=== PATIENT | female | born 1960 | race Caucasian/White ===

== ENCOUNTER 2021-06-18 06:51 | Day surgery (SDC) | payer MEDICAID ==
[2021-06-16 11:45] LABS: COVID AG,FIA SOURCE NASOPHARYNGEAL
[~2021-06-18] VITALS: Ht 167.6 cm; Wt 85.0 kg
[~2021-06-18 06:51] MED LIST: ASPI-1444 PO; FLUT1BLS13 IH; GLIP10TA9 PO; LISI-658 PO; METF-446 PO; SODIUM CHLORIDE 0.9% 1,000 ML IV ONE
[2021-06-18] MEDS ORDERED: ALBUTEROL SULFATE 2.5 MG/0.5 ML NEB SOLUTION NEB ONE (06:52)
[2021-06-18] MEDS ORDERED: BENZOCAINE 20% 50 MCG/SPRAY 57 GM TP ONE (06:52)
[2021-06-18] MEDS ORDERED: LIDOCAINE 2% 30 ML JELLY TP ONE (06:52)
[2021-06-18] MEDS ORDERED: SODIUM CHLORIDE 0.9% 1,000 ML ONE (07:29)
[2021-06-18 07:51] LABS: GLUCOMETER DEV NAME(LOC) SDS.; GLUCOSE,POINT OF CARE 145 MG/DL (70-110)
[2021-06-18] MEDS ORDERED: MIDAZOLAM HCL 5 MG/ML VIAL ONE (08:14)
[2021-06-18] MEDS ORDERED: FentaNYL CITRATE PF 100 MCG/2 ML VIAL ONE (08:14)
[2021-06-18] MEDS ORDERED: MethylPREDNISolone SOD SUCC 125 MG/2 ML VIAL IVP ONE (09:15)
[2021-06-18] MEDS ORDERED: MethylPREDNISolone SOD SUCC 125 MG/2 ML VIAL ONE (10:18)
[2021-06-18] MEDS ORDERED: OXYGEN THERAPY IH SCH (20:00)
== END 2021-06-18 11:40 | disposition home or self-care (01) ==
LOC: SURGERY 06:51
PROVIDERS: ATTEND Internal Medicine Critical Care Medicine
DX: J38.4 Edema of larynx (principal); B37.0 Candidal stomatitis; I10 Essential (primary) hypertension; J43.9 Emphysema, unspecified; Z79.899 Other long term (current) drug therapy; Z87.891 Personal history of nicotine dependence; Z98.51 Tubal ligation status; Z98.890 Other specified postprocedural states
CPT/HCPCS: 31623; 31624; 71045; 82962; 87015; 87070; 87101; 87205; 87206; 87220; 87426; 88108; 88312; C9803; J2250; J2930; J3010; J7030; J7613